=== PATIENT | male | born 1960 | race Caucasian/White ===

== ENCOUNTER 2018-12-07 20:33 | Emergency (ER) | payer MEDICARE, MEDICAID ==
[~2018-12-07] VITALS: Ht 167.6 cm; Wt 100.0 kg
[2018-12-07 20:33] VITALS: Ht 167.6 cm; Wt 100.0 kg
[~2018-12-07 20:33] MED LIST: EPINEPHrine 0.1 MG/ML SYG ONE; NA BICARBONATE 8.4% 50 ML SYG ONE
--- NOTE | 2018-12-07 21:04 | ERD ---
ER Documentation Chief Complaint Chief Complaint CARDIAC ARREST HPI 58-year-old male brought in by ambulance from the field after he had a witnessed collapse while walking with family. CPR was not initiated by family. When ambulance arrived, they initiated CPR. Patient was noted to be in V. tach and had multiple defibrillation efforts in the field. He was given epinephrine and a total of 450 mg of amiodarone. He never had return of spontaneous circulation. ROS Unable to obtain Allergies Allergies: Coded Allergies: No Known Allergy (Unverified , 12/07/18) PMhx/Soc Unable to obtain FmHx Unable to obtain Physical Exam Vitals Vital Signs Date Temp Pulse Resp B/P (MAP) Pulse Ox O2 O2 Flow FiO2 Time Delivery Rate 12/07/18 0 18 0/0 (0) 98 20:33 Physical Exam Const: No acute distress Head: Atraumatic Eyes: Normal Conjunctiva ENT: Normal External Ears, Nose and Mouth. Neck: Full range of motion. No meningismus. Resp: Clear to auscultation bilaterally Cardio: Regular rate and rhythm, no murmurs Abd: Soft, non tender, non distended. Normal bowel sounds Skin: No petechiae or rashes Back: No midline or flank tenderness Ext: No cyanosis, or edema Neur: Awake and alert Psych: Normal Mood and Affect Procedures/MDM Patient came in with a cardiac arrest. ACLS had been performed in the field once ambulance arrived to the scene. They defibrillated him multiple times with no return of spontaneous circulation. Once he arrived, he was immediately intubated and ACLS was continued. Cardiopulmonary Resuscitation by me: See code documentation for specific details. ACLS and BLS were performed with high quality chest compressions and minimal interruptions. Reversible causes were assessed and treated. He was noted to have an AV fistula in the left upper extremity. He was treated with calcium and bicarb as well as multiple doses of epinephrine. There was a short period where the patient did regain pulses. EKG was normal at this time and showed possible acute CA. There was a wide-complex rhythm. Patient again lost pulses. Given that he had been down for over 30 minutes, decision was made to stop resuscitation efforts as the chance of neurologically intact survival is very low at this time. Patient had no spontaneous respirations. Pupils were fixed and dilated, not reactive to light. Time of called at 2048 Family was notified once he arrived to the ER. Critical Care Time: 30 minutes Treatments/Evaluations: Close monitoring and treatment of unstable vital signs, cardiorespiratory, and neurologic status, while maintaining tight balance of fluid, respiratory, and cardiac interventions. This time includes discussing the case with the patient and the patients family. This time does not include all procedures stated elsewhere in this record. This time also includes reviewing old records, labs and radiological studies. This time includes examining and re- examining the patient. Additionally, this time also includes arranging care with admitting and consulting physicians. Departure Diagnosis: Primary Impression: Cardiac arrest CAROLE DYE MD Dec 07, 2018 21:03
== END 2018-12-08 02:01 | disposition expired ==
LOC: E/R 20:33
DX: I46.9 Cardiac arrest, cause unspecified (principal)
CPT/HCPCS: 31500; 92950; 99285; J0171; 93005